=== PATIENT | male | born 1960 ===

== ENCOUNTER 2025-11-01 12:00 | Day surgery (SDC) | payer OTHER ==
[~2025-11-01 12:00] MED LIST: DIPHENHYDRAMINE HCL 50 MG/ML VIAL 1ML IV ONE; MIDAZOLAM HCL 2 MG/2 ML VIAL IV ONE; fentaNYL CITRATE 50 MCG/ML AMPUL IV PUSH ONE
== END 2025-11-01 12:44 | disposition home or self-care (01) ==
LOC: ADM 12:00 → AMB-ENDOS 12:00
PROVIDERS: ATTEND Internal Medicine
DX: D12.2 Benign neoplasm of ascending colon (principal); D12.4 Benign neoplasm of descending colon; D12.8 Benign neoplasm of rectum; K63.5 Polyp of colon; K57.30 Diverticulosis of large intestine without perforation or abscess without bleeding